=== PATIENT | female | born 1970 | race Caucasian/White ===

== ENCOUNTER 2021-02-09 04:02 | Outpatient (CLI) | payer SELFPAY ==
--- NOTE | 2021-02-09 10:00 | DI.RAD_ITS ---
EXAM: XR CERVICAL SP LEWIS TRAUMA 2-3V CLINICAL HISTORY: NECK PAIN, CHRONIC. TECHNIQUE: 2D digital imaging was performed. COMPARISON: No exams were available for comparison FINDINGS: BONES: No fracture or destructive lesion. Vertebral bodies are unremarkable. Facet joint degenerativ e changes, greatest at C3-4 and C7-T1. DISKS: Mild narrowing of the C3-4 and C4-5 disc spaces. Small endplate osteophytes at these level. Moderate narrowing of the C5-6 disc space. ALIGNMENT: Straightening of the normal cervical lordosis secondary to degenerative changes.. The odo ntoid and atlantoaxial articulations are normal. SOFT TISSUE: Normal. The lung apices are clear. Airway unremarkable. IMPRESSION: Degenerative changes, greatest at C5-6. DATA REPOSITORY: RADIATION DOSE DELIVERED:
== END 2021-02-09 04:22 ==
PROVIDERS: PCP Neuromusculoskeletal Medicine & OMM; Visit Provider Chiropractor Orthopedic
DX: M54.2 Cervicalgia (principal); M50.322 Other cervical disc degeneration at C5-C6 level; G89.29 Other chronic pain
CPT/HCPCS: 72040